=== PATIENT | male | born 1970 | race Caucasian/White ===

== ENCOUNTER 2020-05-13 21:43 | Observation (INO) | payer OTHER ==
--- NOTE | 2020-05-13 23:08 | ULT ---
ULTRASOUND ABDOMEN LIMITED: (RIGHT UPPER QUADRANT) DATE: 05/13/2020 HISTORY: 50-year-old male with right upper quadrant abdominal pain FINDINGS: Gallbladder:Multiple gallstones. Largest one 20 mm. Distended lumen. Mural thickening of 6 mm, with m ural edema. Tiny amount of pericholecystic fluid. Positive sonographic Tom sign. Common duct: 7 mm. Liver:Normal echogenicity Pancreas:No sonographic abnormality identified. Right kidney:No hydronephrosis. IMPRESSION: Positive for cholelithiasis and acute cholecystitis
[2020-05-13 23:42] LABS: Troponin I Less than 0.010 ng/mL (< 0.028)
[2020-05-14] MEDS ORDERED: Morphine 4 MG/ML VIAL SLOW IVP PRN (00:23)
[2020-05-14] MEDS ORDERED: Ondansetron PF 4 MG/2 ML Vial IVP PRN (00:30)
[2020-05-14] MEDS ORDERED: Ondansetron ODT 4 MG TAB SL PRN (00:30)
[2020-05-14 00:53] VITALS: BMI 22.6
[2020-05-14] MEDS: Lactated Ringer's 1,000 ML IV SCH ×2 (01:10→07:35)
[2020-05-14] MEDS ORDERED: Nicotine 21 MG PATCH TOP SCH (03:30)
[2020-05-14 04:45] LABS: SARS-CoV-2 MS2 Positive; SARS-CoV-2 N Gene Negative; SARS-CoV-2 S Gene Negative; SARS-CoV-2 by NAA Not Detected (NotDetected); SARS-CoV-2 orf1ab Negative
[2020-05-14] MEDS ORDERED: cefOXitin Sodium/Dextrose,Iso 2 GM in Premix Bag 1 BAG IVPB SCH (06:00)
[2020-05-14] MEDS ORDERED: Bupivacaine 0.25% HCL 30 ML VIAL ONE (07:29)
[2020-05-14] MEDS ORDERED: Lidocaine 1% w/Epinephrine 1:100K 20 ML VIAL ONE (07:29)
[2020-05-14] MEDS ORDERED: Fentanyl 100 MCG/2 ML VIAL ONE (08:08)
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
[2020-05-14] MEDS ORDERED: Promethazine HCl 25 MG/ML VIAL IM PRN (09:12)
[2020-05-14] MEDS ORDERED: HYDROmorphone 2 MG/ML VIAL SLOW IVP PRN (09:12)
[2020-05-14] MEDS ORDERED: Meperidine HCl/PF 25 MG/ML VIAL SLOW IVP PRN (09:12)
[2020-05-14] MEDS ORDERED: Promethazine HCl 25 MG/ML VIAL SLOW IVP PRN (09:12)
[2020-05-14] MEDS ORDERED: Iothalamate Meglumine 60% 50 ML VIAL FS ONE (09:19)
--- NOTE | 2020-05-14 10:40 | RAD ---
Exam: Intraoperative cholangiogram Exposure: 1.98 mCi. 13 seconds FINDINGS: Single fluoroscopic view demonstrates cannulation of the cystic duct. Contrast opacifies a normal-appearing central intrahepatic and extrahepatic biliary system. Contrast passes into the duodenum. IMPRESSION: Intraoperative fluoroscopy as above.
[2020-05-14] MEDS ORDERED: Rocuronium Bromide 10 MG/ML (10ML VIAL) ONE (11:04)
[2020-05-14] MEDS ORDERED: Ondansetron PF 4 MG/2 ML Vial ONE (11:04)
[2020-05-14] MEDS ORDERED: Lidocaine 1% PF 5 ML VIAL ONE (11:04)
[2020-05-14] MEDS ORDERED: PROPOFOL 200 MG/20 ML VIAL ONE (11:04)
[2020-05-14] MEDS ORDERED: Dexamethasone 20 MG/5 ML VIAL ONE (11:04)
[2020-05-14] MEDS ORDERED: Glycopyrrolate 0.2 MG/ML 5 ML SYRINGE ONE (11:04)
[2020-05-14] MEDS ORDERED: PHENYLEPHRINE-NS 100 MCG/ML 10 ML SYRINGE ONE (11:04)
[2020-05-14] MEDS ORDERED: Ketorolac Tromethamine 30 MG/ML VIAL ONE (11:04)
[2020-05-14] MEDS ORDERED: traMADol HCl 50 MG TAB PO PRN ×2 (11:19)
[2020-05-14 11:26] VITALS: BP 109/68; TEMP 98
--- NOTE | 2020-05-14 11:31 | OP ---
DATE OF PROCEDURE: 05/13/2020 PREOPERATIVE DIAGNOSIS: Acute cholecystitis. POSTOPERATIVE DIAGNOSES: Acute cholecystitis with dilated cystic duct. PROCEDURE PERFORMED: Laparoscopic cholecystectomy with intraoperative cholangiogram. ANESTHESIA: General endotracheal. INDICATIONS: The patient is a 50-year-old white male who presented to the hospital with a complaint of left chest pain. However, the evaluation revealed evidence of acute cholecystitis and laparoscopic cholecystectomy was recommended. His liver function tests were normal before surgery, but he had a markedly elevated white blood cell count and a very tender right upper quadrant. DESCRIPTION OF OPERATION: Informed consent was obtained. The patient was taken to the operating room, where general endotracheal anesthesia obtained with the patient in supine position. Abdomen was prepped with ChloraPrep and draped in sterile fashion. Local anesthetic was infiltrated using a mixture of 1% lidocaine with epinephrine and 0.25% Marcaine. An 11 mm infraumbilical incision was created, through which a Veress needle was passed to the peritoneal cavity and pneumoperitoneum was established with carbon dioxide up to pressure of 15 mmHg. An 11 mm trocar port was passed through the same incision and laparoscopic camera was passed through this port. Under direct vision, three additional 5 mm right upper quadrant ports were placed in usual location. Attention was turned to the gallbladder. This was grossly distended and inflamed. It could not be grasped. Aspiration needle was used to decompress this. The contents were all clear and mucoid, consistent with gallbladder hydrops. The gallbladder was then grasped and retracted in cephalad direction. The infundibulum was grasped and retracted laterally inferiorly. Careful dissection was carried out at the apex of the gallbladder to identify the cystic duct and cystic artery. The artery was divided uneventfully. The duct, however, was markedly enlarged and seemed to be somewhat thick walled. A clip could not traverse this completely and I decided to obtain a cholangiogram. Cholangiogram was obtained uneventfully using the Taut cholangiocath and this revealed normal filling of the common duct and quick emptying into the duodenum. This was a negative study. The duct was divided between clips, and a PDS Endoloop was placed on and to remain within the body as it was still dilated. The gallbladder was then dissected out of the gallbladder fossa using careful electrocautery. It was removed through the umbilical port site. Unfortunately, there was a large gallstone and very thickened gallbladder and had to make the skin incision and fascial incision larger to extract it. The fascia was closed with a [id number] suture of 0 Vicryl using a GraNee needle. Right upper quadrant was thoroughly irrigated and all irrigant was aspirated. All ports and instruments were removed under direct vision. Pneumoperitoneum was carefully evacuated. 0.25% Marcaine with epinephrine was infiltrated in each port site. Skin edges approximated with 4-0 Monocryl subcuticular suture. Dermabond was placed externally. There were no complications. The patient tolerated the procedure well, was taken to recovery room in stable condition. Job ID: [id number]
--- NOTE | 2020-05-20 15:12 | EKG ---
Test Reason : Blood Pressure : / mmHG Vent. Rate : 069 BPM Atrial Rate : 069 BPM P-R Int : 136 ms QRS Dur : 090 ms QT Int : 428 ms P-R-T Axes : 062 003 010 degrees QTc Int : 458 ms Normal sinus rhythm Possible Left atrial enlargement Septal infarct , age undetermined Abnormal ECG Confirmed by ALICIA RICH DO ([id number]), book or script editor ZBIGNIEW OZUNA ([id number]) on 05/20/2020 3:12:21 PM Referred By: Confirmed By:ALICIA RICH DO
== END 2020-05-14 14:00 | disposition home or self-care (01) ==
LOC: ERS 21:43 → SURG A 23:31
PROVIDERS: ADMIT Specialist; ATTEND Specialist
PROC: 0FT44ZZ Resection of Gallbladder, Percutaneous Endoscopic Approach (ICD-10-PCS; principal; 2020-05-13)
PROC: BF101ZZ Fluoroscopy of Bile Ducts using Low Osmolar Contrast (ICD-10-PCS; 2020-05-13)
DX: K80.12 Calculus of gallbladder with acute and chronic cholecystitis without obstruction (principal); K82.8 Other specified diseases of gallbladder; E78.5 Hyperlipidemia, unspecified; E78.00 Pure hypercholesterolemia, unspecified; F12.10 Cannabis abuse, uncomplicated; F14.10 Cocaine abuse, uncomplicated; F15.10 Other stimulant abuse, uncomplicated; F17.210 Nicotine dependence, cigarettes, uncomplicated; F32.9 Major depressive disorder, single episode, unspecified; Z79.899 Other long term (current) drug therapy; Z20.828 Contact with and (suspected) exposure to other viral communicable diseases
CPT/HCPCS: 36415; 47532; 76705; 83690; 87635; 88304; 93005; 96365; G0378; J0694; J1100; J1610; J1885; J2405; J2704; J3010; S0020; U0003